=== PATIENT | male | born 1945 | race African-American/Black ===

== ENCOUNTER 2024-06-01 05:09 | Emergency (ER) | payer BC, MEDICARE ==
[~2024-06-01] VITALS: Ht 185.4 cm; Wt 79.0 kg
[2024-06-01 05:12] VITALS: PULSE 92
[2024-06-01 05:15] VITALS: BP 114/68; RESP 16; TEMP 98.3; O2SAT 100
[2024-06-01 05:30] LABS: CLARITY URINE CLEAR (CLEAR); COLOR URINE DARK YELLOW (YELLOW); GLUCOSE URINE NEGATIVE (NEGATIVE); KETONES URINE TRACE (NEGATIVE); LEUKOCYTE ESTERASE URINE NEGATIVE (NEGATIVE); NITRITE URINE NEGATIVE (NEGATIVE); OCCULT BLOOD URINE NEGATIVE (NEGATIVE); PH URINE 5.5 (4.5-8.0); PROTEIN URINE TRACE (NEGATIVE); SPECIFIC GRAVITY URINE 1.029 (1.005-1.030)
[2024-06-01 05:36] LABS: BASOPHILS % 0.9 % (0.0-2.0); EOSINOPHILS % 1.9 % (0.0-5.0); HEMOGLOBIN. 14.3 g/dL (14.0-18.0); LYMPHOCYTES % 26.1 % (20.0-50.0); MEAN CORPUSCULAR HEMOGLOBIN 31.4 pg (28.0-32.0); MEAN CORPUSCULAR HGB CONC 34.1 g/dL (31.0-37.0); MEAN PLATELET VOLUME 8.4 fl (7.4-10.4); MONOCYTES % 6.7 % (2.0-8.0); NEUTROPHILS % 64.4 % (40.0-76.0); PLATELET 222 x1000/uL (130-400); RED BLOOD CELL COUNT 4.56 mill/uL (4.7-6.1); RED CELL DISTRIBUTION WIDTH 13.7 % (11.6-14.6); WHITE BLOOD COUNT 5.5 x1000/uL (4.5-11.0)
[2024-06-01] MEDS ORDERED: MAGNESIUM/ALUMINUM HYDROXIDE/SIMETHICONE 30ML UDC PO STA (05:46)
[2024-06-01] MEDS ORDERED: ONDANSETRON 4MG ODT PO STA (05:46)
[2024-06-01] MEDS ORDERED: DICYCLOMINE 10 MG/5 ML ORAL SYR PO STA (05:46)
[2024-06-01 05:53] LABS: CHLORIDE 105 mEq/L (98-107); POTASSIUM 3.8 mEq/L (3.5-5.1); SODIUM 140 mEq/L (136-145)
[2024-06-01 05:54] LABS: CARBON DIOXIDE 29 mEq/L (21-32)
[2024-06-01 05:55] LABS: CALCIUM 9.6 mg/dL (8.7-10.4)
[2024-06-01 05:59] LABS: CREATININE 1.1 mg/dL (0.6-1.3); GLUCOSE 163 mg/dL (70-105)
[2024-06-01 06:00] LABS: UREA NITROGEN BLOOD 12 mg/dL (9-23)
[2024-06-01] MEDS: ONDANSETRON 4MG ODT PO NR (06:00)
[2024-06-01] MEDS: DICYCLOMINE HCL 10MG CAPSULE PO NR (06:00)
[2024-06-01] MEDS: MAGNESIUM/ALUMINUM HYDROXIDE/SIMETHICONE 30ML UDC PO NR (06:00)
[2024-06-01 06:01] LABS: ALANINE AMINOTRANSFERASE 25 IU/L (10-49); ALBUMIN 4.7 g/dL (3.2-4.8); ASPARTATE AMINOTRANSFERASE 63 IU/L (<34)
[2024-06-01 06:02] LABS: BILIRUBIN DIRECT 0.1 mg/dL (<=3.0); BILIRUBIN TOTAL 0.4 mg/dL (0.1-1.0); PROTEIN TOTAL 7.8 g/dL (6.0-8.3)
[2024-06-01] MEDS ORDERED: OMEP10CA5 PO (06:36)
[2024-06-01 07:08] LABS: SQUAMOUS EPITHELIAL CELL URINE FEW /lpf (RARE/1+)
[2024-06-01 07:10] LABS: RBC URINE 0-2 /hpf (0-2); WBC URINE 0-2 /hpf (0-2)
[2024-06-01 07:11] LABS: BACTERIA URINE NONE SEEN
== END 2024-06-01 07:39 | disposition home or self-care (01) ==
LOC: ER 05:09
DX: K21.9 Gastro-esophageal reflux disease without esophagitis (principal)
CPT/HCPCS: 99284; 80076; 80048; 81003; 83690; 85025; 36415; Q0162